=== PATIENT | female | born 1990 | race Caucasian/White ===

== ENCOUNTER → 2020-06-20 | Outpatient (CLI) | payer BC ==
[2020-06-20 12:21] LABS: HEMOGLOBIN 13.3 gm/dl (12.3-15.3); RED BLOOD COUNT 4.43 M/UL (4.00-5.10); WHITE BLOOD COUNT 7.6 K/UL (4.5-11.0)
[2020-06-20 12:47] LABS: BUN/CREATININE RATIO 18 (0-10)
== END ==
LOC: LAB 11:35
PROVIDERS: Psychiatry & Neurology Clinical Neurophysiology
DX: G35 Multiple sclerosis (principal); E55.9 Vitamin D deficiency, unspecified; Z79.899 Other long term (current) drug therapy
CPT/HCPCS: 36415; 80053; 85025